=== PATIENT | female | born 1995 | race African-American/Black ===

== ENCOUNTER 2024-06-25 19:22 | Emergency (ER) | payer MEDICAID, OTHER ==
[~2024-06-25] VITALS: Ht 175.3 cm; Wt 103.0 kg
[2024-06-25 19:32] VITALS: O2SAT 99
[2024-06-26] MEDS: LIDOCAINE HCL/EPINEPHRINE 1%-EPI 1:100,000 20ML VIAL INFIL ONE (02:51)
[2024-06-26] MEDS: BACITRACIN ZINC OINT UDPKT TOP ONE (02:52)
[2024-06-26] MEDS ORDERED: SULF1TAB48 MT (04:22)
[2024-06-26] MEDS ORDERED: CEPH500T MT (04:22)
[2024-06-26 04:58] VITALS: BP 104/72; PULSE 98; RESP 16; TEMP 37.1; O2SAT 100
== END 2024-06-26 05:03 | disposition home or self-care (01) ==
LOC: ER 19:22
DX: M54.2 Cervicalgia (principal); Z53.21 Procedure and treatment not carried out due to patient leaving prior to being seen by health care provider
CPT/HCPCS: 99282